=== PATIENT | female | born 1980 | race Caucasian/White ===

== ENCOUNTER → 2017-12-12 12:16 | Outpatient (CLI) | payer OTHER, SELFPAY ==
[2017-12-16 15:12] LABS: HPV Reflexed? NOT INDICATED
== END ==
PROVIDERS: Family Provider Family Medicine; PCP Family Medicine; Visit Provider Family Medicine
DX: Z12.4 Encounter for screening for malignant neoplasm of cervix (principal)
CPT/HCPCS: 88175; G0145

== ENCOUNTER → 2017-12-17 06:31 | Outpatient (CLI) | payer OTHER, SELFPAY ==
--- NOTE | 2017-12-17 10:55 | STRESSREP ---
Stress Test Report Date: 12/17/2017 Procedure: Exercise tolerance test/imaging study Indications: Chest pain Consent: Per the patient Procedure: The patient exercised on a Yuri protocol for 9 minutes completing Stage III achieving a peak heart rate of 173 bpm (95 % predicted maximal heart rate) with a peak blood pressure 144/80 mmHg and a peak MET capacity of 10 METs. The baseline ECG demonstrated sinus rhythm. The peak exercise ECG demonstrated no obvious ECG changes. There were no cardiac dysrhythmias pretest, during exercise, or recovery. The functional capacity was considered good. There was no complaint of chest discomfort during exercise or recovery. The examination was discontinued secondary to dyspnea. Impression: 1. Technically adequate (percent predicted maximal heart rate greater than 85%) exercise tolerance test 2. Peak exercise ECG obvious ECG changes 3. No cardiac dysrhythmias pretest, during exercise, or recovery. 4. Nuclear images pending Myocardial perfusion imaging study: Technique: The patient was injected with 11.5 mCi of technetium 99m Cardiolite and subsequently rest SPECT Cardiolite nuclear imaging was obtained in the horizontal long, vertical long, and short axis views. The patient exercised on a Yuri protocol for 9 minutes completing Stage III achieving a peak heart rate of 173bpm (95 % predicted maximal heart rate) with a peak blood pressure 144/80 mmHg and a peak MET capacity of 10 METs. The patient was injected with 32.2 mCi of technetium 99m Cardiolite and subsequently stress SPECT Cardiolite nuclear imaging was obtained in the horizontal long, vertical long, and short axis views. A gated Cardiolite study at peak stress was obtained. Interpretation: Rest and stress SPECT Cardiolite nuclear imaging status post realignment, normalization, and attenuation correction, demonstrates the appearance of relative uniform tracer uptake and myocardial perfusion appearing within normal limits. There is end systolic thickening and brightening. The gated Cardiolite study demonstrates myocardial thickening and inward wall motion. The reported LVEF is 80 %. Impression: 1. Rest and stress SPECT Cardiolite nuclear imaging demonstrate relative uniform tracer uptake and myocardial perfusion appearing within normal limits. 2. The gated Cardiolite study reports an LVEF of 80 %. This note was generated with [employer] software. It may contain incorrect words, spelling, and punctuation that were not noted in checking the note before signing.
--- NOTE | 2017-12-17 10:59 | STRESSREP_ITS ---
Stress Test Report Date: 12/17/2017 Procedure: Exercise tolerance test/imaging study Indications: Chest pain Consent: Per the patient Procedure: The patient exercised on a Yuri protocol for 9 minutes completing Stage III achieving a peak heart rate of 173 bpm (95 % predicted maximal heart rate) with a peak blood pressure 144/80 mmHg and a peak MET capacity of 10 METs. The baseline ECG demonstrated sinus rhythm. The peak exercise ECG demonstrated no obvious ECG changes. There were no cardiac dysrhythmias pretest, during exercise, or recovery. The functional capacity was considered good. There was no complaint of chest discomfort during exercise or recovery. The examination was discontinued secondary to dyspnea. Impression: 1. Technically adequate (percent predicted maximal heart rate greater than 85% ) exercise tolerance test 2. Peak exercise ECG obvious ECG changes 3. No cardiac dysrhythmias pretest, during exercise, or recovery. 4. Nuclear images pending Myocardial perfusion imaging study: Technique: The patient was injected with 11.5 mCi of technetium 99m Cardiolite and subsequently rest SPECT Cardiolite nuclear imaging was obtained in the horizontal long, vertical long, and short axis views. The patient exercised on a Yuri protocol for 9 minutes completing Stage III achieving a peak heart rate of 173bpm (95 % predicted maximal heart rate) with a peak blood pressure 144/80 mmHg and a peak MET capacity of 10 METs. The patient was injected with 32.2 mCi of technetium 99m Cardiolite and subsequently stress SPECT Cardiolite nuclear imaging was obtained in the horizontal long, vertical long, and short axis views. A gated Cardiolite study at peak stress was obtained. Interpretation: Rest and stress SPECT Cardiolite nuclear imaging status post realignment, normalization, and attenuation correction, demonstrates the appearance of relative uniform tracer uptake and myocardial perfusion appearing within normal limits. There is end systolic thickening and brightening. The gated Cardiolite study demonstrates myocardial thickening and inward wall motion. The reported LVEF is 80 %. Impression: 1. Rest and stress SPECT Cardiolite nuclear imaging demonstrate relative uniform tracer uptake and myocardial perfusion appearing within normal limits. 2. The gated Cardiolite study reports an LVEF of 80 %. This note was generated with [employer] software. It may contain incorrect words, spelling, and punctuation that were not noted in checking the note before signing.
== END ==
LOC: CVS 06:33
PROVIDERS: Family Provider Family Medicine; PCP Family Medicine; Visit Provider Family Medicine
DX: R07.9 Chest pain, unspecified (principal)
CPT/HCPCS: 78452; 93017; A9500; A4216

== ENCOUNTER 2019-07-12 15:39 | Emergency (ER) | payer SELFPAY ==
[2019-07-12 15:40] VITALS: BP 115/67; PULSE 86; RESP 16; TEMP 36.6; O2SAT 99
--- NOTE | 2019-07-12 15:58 | CT_ITS ---
STUDY: CT BRAIN WITHOUT CONTRAST REASON FOR EXAM: Female, 38 years old. Headache, neck pain, weak, nausea, hx migraines. RADIATION DOSAGE (If Supplied By Facility): CTDIvol = ( 60.81 ) mGy, DLP = ( 998.67 ) mGycm TECHNIQUE: Transaxial CT imaging of the brain was performed without administration of intravenous contrast material. Individualized dose optimization techniques were used for this CT. COMPARISON: No relevant priors. FINDINGS: Normal soft tissue structures. Normal calvarium. Normal size ventricles and extra-axial spaces for the patient''s age. Normal white matter tracts of the cerebral hemispheres. Normal basal ganglia and thalami. Normal brainstem. Normal cerebellum. There is no intracranial hemorrhage. There are no findings of an acute ischemic infarction. Normal visualized paranasal sinuses. CT/Brain/Head without Contrast IMPRESSION: Normal unenhanced CT scan of the brain. Electronically Signed: Estuardo Haney MD at 17:03 EST Tel [phone], Service support ,
--- NOTE | 2019-07-12 16:00 | ED.VISSUMM ---
- ER Visit Summary Date of Service: 07/12/19 Chief Complaint: Acute cephalgia with nausea and vomiting History of Present Illness: The patient is a [address] migraine headaches but states she has not had this for years. Said on Friday she had gradual onset of headache radiating to both sides of her back of her neck into her forehead bilaterally. Says it was gradual in onset not thunderclap or sudden. She denies any neurological symptoms. No change in her vision. But she does have photophobia. No trouble moving her arms or legs. No falls or recent head trauma. She is currently not on any medications. Physical Examination: Middle-aged female no acute distress eyes are closed. HEENT exam unremarkable atraumatic. Pupils round reactive light. Intact. Moist with membranes. No facial droop. Normal speech. No signs of trauma to her face or scalp. Neck nontender. No lymphadenopathy. No meningismus. Able to touch chin to chest. Lungs clear to auscultation bilaterally. Heart regular rate and rhythm no murmur. Chest nontender. Abdomen soft nontender. Normal bowel no peritoneal signs. Patient moving all 4 extremities. Neurovascular intact. No abscesses. 5/5 motor strength bilaterally. Dorsi plantarflexion intact. Back exam normal. Skin unremarkable. Neurologically she is awake and alert. No focal motor or sensory deficits. NIH is 0. Speech. No facial droop. Fingertip to nose within normal limits bilaterally. Test Results: CAT scan of the brain without contrast shows no acute intracranial bleed. I reviewed his it was just performed. It will be checked out to the afternoon physician who will follow up with the radiologist reading of the CAT scan. Emergency Department Course and Treatment: Patient treated with IV fluids, Phenergan for nausea, Toradol for pain and Benadryl. She is a history of migraine headaches. Repeat exam at 1645 she is resting comfortably. She said her headache is currently an 8 out of 10. She received medications about 20 to 25 minutes ago. She will be reassessed by the afternoon physician prior to disposition. Treatment Plan: [] Disposition: Discharge Impression: Acute cephalgia History of migraine headaches History of intermittent heroin use This note was generated with [employer] dictation software. It may contain incorrect words, spelling, and punctuation that were not noted in review of the chart prior to signing ED Disposition - Plan for ED Patient: Disposition: Home or Assisted Living Instructions: HEADACHE, Unspecified Referrals: Mitali Zamora MD [Primary Care Provider] - 1-2 Days if not improving Additional Instructions: Plenty of fluids and rest. Tylenol and Motrin for pain. Follow-up if not improving or return to the ER feeling worse.
[2019-07-12] MEDS: proMETHazine 25 MG/ML Syringe 12.5 MG IV (16:17)
[2019-07-12] MEDS: Ketorolac 30 MG/ML Syringe IV (16:17)
[2019-07-12] MEDS: 0.9% Normal Saline 1,000 ML 1000 ML IV (16:17)
[2019-07-12] MEDS: DiphenhydrAMINE 50 MG/ML Syringe 25 MG IV (16:17)
--- NOTE | 2019-07-12 16:19 | ED.DEP ---
ED Disposition - Plan for ED Patient: Disposition: Home or Assisted Living Instructions: HEADACHE, Unspecified Referrals: Mitali Zamora MD [Primary Care Provider] - 1-2 Days if not improving Additional Instructions: Plenty of fluids and rest. Tylenol and Motrin for pain. Follow-up if not improving or return to the ER feeling worse.
--- NOTE | 2019-07-12 17:18 | ED.VISSUMM ---
- ER Visit Summary Date of Service: 07/12/19 Chief Complaint: [Addendum to initial dictation by Dr. Miguel Carlson] History of Present Illness: The patient is a 38 F [presented with headache x2 days. Care of patient was turned over to me awaiting results of CT scan. Patient CT scan was read as normal. I reevaluated the patient and her headache is currently down to a 7 out of 10 in the continuing to improve. I did ask her if she wanted anything further for the pain and she states that she does not at this time. Discharge instructions were written by Dr. Miguel Carlson.] Physical Examination: [HEENT-PERRLA, EOMI. Cranial nerves II through XII grossly intact. TMs clear. Mucous membranes moist. No adenopathy. No nuchal rigidity. Cardiovascular-regular rate and rhythm without murmur or ectopy Lungs-clear to auscultation, chest wall stable without crepitus or subcu emphysema Abdomen-normoactive bowel sounds, soft, nontender, no rebound or rigidity, no peritoneal signs. Neuro sydc-[id number]-ym-nose and heel kendrick testing within normal limits, negative Romberg, negative pronator drift, fundi benign Extremities-intact ?4, normal range of motion, normal pulses, atraumatic] Test Results: [CT scan of the brain without contrast was normal.] Emergency Department Course and Treatment: [] Treatment Plan: [Follow-up with her primary care physician. Advised to return if worsening pain, difficulty with balance or speech, fevers, or conditions worsen anyway.] Disposition: [Discharged home in stable condition] Impression: [Cephalgia] This note was generated with [employer] dictation software. It may contain incorrect words, spelling, and punctuation that were not noted in review of the chart prior to signing ED Disposition - Plan for ED Patient: Disposition: Home or Assisted Living Instructions: HEADACHE, Unspecified Referrals: Mitali Zamora MD [Primary Care Provider] - 1-2 Days if not improving Additional Instructions: Plenty of fluids and rest. Tylenol and Motrin for pain. Follow-up if not improving or return to the ER feeling worse.
== END 2019-07-12 17:31 | disposition home or self-care (01) ==
PROVIDERS: Emergency Provider Emergency Medicine; Family Provider Family Medicine; PCP Family Medicine
DX: R51 Headache (principal); F11.90 Opioid use, unspecified, uncomplicated; Z72.0 Tobacco use
CPT/HCPCS: 70450; 96361; 96374; 96375; 99283; J7030; A4216

== ENCOUNTER 2019-08-27 10:51 | Emergency (ER) | payer SELFPAY ==
[2019-08-27] VITALS (10 sets, daily range): BP systolic 114–133; BP diastolic 80–91; PULSE 16–96; RESP 16–20; TEMP 36.8; O2SAT 97–99; BMI 20.8
--- NOTE | 2019-08-27 10:57 | EKG12_ITS ---
Test Reason : SUICIDE Blood Pressure : / mmHG Vent. Rate : 083 BPM Atrial Rate : 083 BPM P-R Int : 126 ms QRS Dur : 086 ms QT Int : 378 ms P-R-T Axes : 053 032 060 degrees QTc Int : 444 ms Normal sinus rhythm Normal ECG Confirmed by JESSICA PEARL, STEPHIE ([id number]), editor newspaper JACQUELYN RODRIGUEZ ([id number]) on 08/30/2019 10:52:09 AM Referred By: ANNIA Confirmed By:TITA LOPEZ MD
--- NOTE | 2019-08-27 10:58 | ED.VIS.GEN ---
History of Present Illness Chief Complaint: Suicidal Informant: Patient Onset: Days Context: Gradual Onset Timing: Continuous Current Severity: Severe Maximum Severity: Severe Narrative: The patient is a 39-year-old female that presents to the emergency department with suicidal thoughts and suicidal gesture. The patient states that she has been hooked on heroin for about 4 months. She states she got into a relationship with someone who got her started on heroin. She states that she uses almost every day. She has tried to seek help, but states that she has never been able to maintain her sobriety. She states she is at the point where she does not want to live anymore. This morning, she took 3 Vistaril tablets of approximately 25 mg. She also injected heroin about 6 AM. She states that she was hoping it would be enough to kill her. Patient does have a history of prior attempt when she was 18. She states that she overdosed on pills. She does not follow with any counseling services. She voices that she just does not want to live anymore. Prior similar symptoms: No Recent Illness/Hospitalization: No Past Medical History - Allergies and Home Meds Allergies/Adverse Reactions: Allergies iodine Allergy (Verified 07/12/19 15:43) Hives Primary Care Physician: Mitali Zamora MD [Primary Care Provider] - Prior records reviewed: Yes Past Medical History: - - Heroin abuse, depression Surgical History: noncontributory Smoking Status: Current every day smoker Review of Systems General: Denies: Chills, Fever, Sweats Eyes: Denies: Visual changes - bilaterally, Diplopia ENT: Denies: Rhinorrhea, Sore throat Cardiovascular: Denies: Chest pain, Palpitations Respiratory: Denies: Dyspnea, Cough, Dyspnea on exertion Gastrointestinal: Reports: Nausea. Denies: Abdominal pain, Vomiting, Diarrhea, Melena, Hematochezia Genitourinary: Denies: Dysuria, Hematuria, Frequency Musculoskeletal: Denies: Back pain, Extremity Pain Skin: Denies: Rash, Wounds Neurological: Denies: Headache, Weakness, Numbness Psych: Reports: Suicidal thoughts Physical Exam Vital Signs/Narrative: Vital Signs Temp Pulse Resp BP Pulse Ox 08/27/19 10:52 98.2 F 72 16 133/86 H 99 Inital Vital Signs reviewed: Yes General: Well nourished, Well developed, No Acute Distress Head: Normocephalic, Atraumatic Eyes: Perrl, EOMI ENT: Moist mucous membranes, No rhinorrhea Neck: Supple, Nontender Cardiovascular: Regular rate, Regular rhythm, No murmurs Respiratory: No distress, CTA bilaterally, Chest nontender Abdomen: Soft, Nontender, Nondistended, Normal bowel sounds Back: Nontender, Normal Inspection Extremities: Nontender, No edema Skin: Normal color, No rash Neurological: Alert, Oriented x3, Cranial nerves II-XII grossly intact, Normal Strength, Normal Sensation Psychological: Depressed Diagnostic/Tx/Re-eval Abnormal Lab Results 08/27/19 08/27/19 08/27/19 11:20 11:20 11:20 WBC 8.6 RBC 4.74 Hgb 13.9 Hct 40.9 MCV 86.3 MCH 29.3 MCHC 34.0 RDW Std Deviation 39.2 RDW Coeff of Kristine 12.5 Plt Count 242 MPV 10.4 Immature Gran % (Auto) 0.200 Neut % (Auto) 86.0 H Lymph % (Auto) 8.2 L [place] % (Auto) 4.3 Eos % (Auto) 0.7 Baso % (Auto) 0.6 Absolute Neuts (auto) 7.4 Absolute Lymphs (auto) 0.70 L Nucleated RBC % 0 Sodium 136 Potassium 3.5 Chloride 106 Carbon Dioxide 25.0 Anion Gap 5 BUN 9 Creatinine 0.72 Estim Creat Clear Calc 93.30 Est GFR (MDRD) Af Amer 116 Est GFR (MDRD) Non-Af 96 BUN/Creatinine Ratio 12.6 Glucose 86 Calcium 9.6 Total Bilirubin 0.60 AST 25 ALT 48 Alkaline Phosphatase 91 Total Protein 8.1 Albumin 4.0 Globulin 4.1 Albumin/Globulin Ratio 1.0 Serum , Qual Urine Opiates Screen Urine Methadone Screen Ur Barbiturates Screen Ur Phencyclidine Scrn Ur Amphetamines Screen U Methamphetamin-MDMA U Benzodiazepines Scrn Urine Cocaine Screen U Cannabinoids Screen Ur Drug Screen Comment Ethyl Alcohol < 3.0 08/27/19 08/27/19 11:20 12:00 WBC RBC Hgb Hct MCV MCH MCHC RDW Std Deviation RDW Coeff of Kristine Plt Count MPV Immature Gran % (Auto) Neut % (Auto) Lymph % (Auto) [place] % (Auto) Eos % (Auto) Baso % (Auto) Absolute Neuts (auto) Absolute Lymphs (auto) Nucleated RBC % Sodium Potassium Chloride Carbon Dioxide Anion Gap BUN Creatinine Estim Creat Clear Calc Est GFR (MDRD) Af Amer Est GFR (MDRD) Non-Af BUN/Creatinine Ratio Glucose Calcium Total Bilirubin AST ALT Alkaline Phosphatase Total Protein Albumin Globulin Albumin/Globulin Ratio Serum , Qual NEGATIVE Urine Opiates Screen POSITIVE H Urine Methadone Screen NEGATIVE Ur Barbiturates Screen NEGATIVE Ur Phencyclidine Scrn NEGATIVE Ur Amphetamines Screen NEGATIVE U Methamphetamin-MDMA NEGATIVE U Benzodiazepines Scrn NEGATIVE Urine Cocaine Screen NEGATIVE U Cannabinoids Screen NEGATIVE Ur Drug Screen Comment Ethyl Alcohol - Medical Decision Making The patient presents to the emergency department after a suicidal gesture. She did not have a toxic dose of the hydroxyzine. She also admitted to using heroin this morning, but she is awake and alert. She does admit to being currently suicidal. Metabolic screening exam was obtained and is unremarkable. Urine was positive for opiates which the patient did admit to. At this point, she will undergo psychiatric evaluation due to suicidality with persistent plan. Impression 1. Suicidal gesture 2. Heroin abuse ED Disposition - Plan for ED Patient: Referrals: Mitali Zamora MD [Primary Care Provider] -
[2019-08-27] MEDS: Acetaminophen 500 MG Tablet 1000 MG PO (11:10)
[2019-08-27] MEDS: LORazepam 1 MG Tablet PO (11:10)
[2019-08-27 11:34] LABS: Absolute Neutrophil Count 7.4 X10^3/uL (2.0-7.7); Basophil# 0.05 X10^3/uL; Basophil% 0.6 % (0-1); Eosinophil# 0.06 X10^3/uL; Eosinophils% 0.7 % (0-5); Hematocrit 40.9 % (37-47); Hemoglobin 13.9 g/dL (12.0-15.0); Lymphocyte % 8.2 % (19-41); Mean Corpuscular Hgb 29.3 pg (27.0-32.0); Mean Corpuscular Volume 86.3 fL (81-99); Mean Platelet Vol. 10.4 fl (6.2-12.0); Monocyte# 0.37 X10^3/uL; Monocyte% 4.3 % (0-10); NRBC Flagged by Analyzer 0 % (0-5); Neutrophil # 7.37 X10^3/uL (2.7-7.7); Platelet Count 242 K/mm3 (150-450); RBC Distribution Width CV 12.5 % (11.6-14.6); RBC Distribution Width SD 39.2 fl (35.1-43.9); Red Blood Count 4.74 M/mm3 (4.2-5.4); White Blood Count 8.6 K/mm3 (4.4-11.0)
[2019-08-27 11:43] LABS: Internal QC Validated? YES +Cl - CLEAR BKGD; Pregnancy, Serum, hCG Quali. NEGATIVE Negative
[2019-08-27 11:51] LABS: AST(SGOT) 25 U/L (15-37); Alanine Aminotransfer ALT/SGPT 48 U/L (13-56); Alkaline Phosphatase 91 U/L (45-117); Anion Gap 5 (5-15); BUN 9 mg/dL (7-18); BUN/Creat Ratio 12.6 RATIO (10-20); Calcium,Total 9.6 mg/dL (8.5-10.1); Chloride 106 mmol/L (98-107); Creatinine, Serum 0.72 mg/dL (0.55-1.02); EST Glomerular Filtration Rate 96 mL/min (>60); Est Glom Filt Rate - Afr Amer 116 mL/min (>60); Globulin 4.1 g/dL (2.2-4.2); Glucose 86 mg/dL (74-106); Potassium 3.5 mmol/L (3.5-5.1); Protein, Total 8.1 g/dL (6.4-8.2); Sodium Level 136 mmol/L (136-145)
[2019-08-27 12:10] LABS: Alcohol, Blood (Medical)-Serum < 3.0 mg/dL
[2019-08-27 12:30] LABS: Amphetamine Urine VISTA NEGATIVE (<1000 ng/mL); Barbiturate Urine VISTA NEGATIVE (< 200 ng/mL); Benzodiazepine Urine VISTA NEGATIVE (< 200 ng/mL); Cocaine Urine VISTA NEGATIVE (< 300 ng/mL); Ecstacy Urine VISTA NEGATIVE (< 500 ng/mL); Methadone Urine VISTA NEGATIVE (< 300 ng/mL); PCP Urine VISTA NEGATIVE (< 25 ng/mL); THC Urine VISTA NEGATIVE (< 50 ng/mL); Vista UDS pH Range 8
--- NOTE | 2019-08-27 13:06 | CM.ED ---
Social Work Consult: Suicidal Informant: Dr. Russ Patient noted to be self-pay and is confirming to not have insurance. Crisis to come and assess patient. Telephone call to [facility] jackson. Crisis to come and assess. No ETA was given. Shilpa ROMERO, JARED
[2019-08-27] MEDS: Acetaminophen/Butalbital/Caffe 1 Tablet PO (15:27)
[2019-08-27] MEDS: LORazepam 1 MG Tablet 2 MG PO ×2 (16:09→23:10)
[2019-08-27 17:01] LABS: CPK Total, Creatine Kinase 47 U/L (26-192); Thyroid Stim Hormone (TSH) 0.63 uIU/mL (0.358-3.74)
[2019-08-27] MEDS: Ibuprofen 600 MG Tablet PO (17:28)
--- NOTE | 2019-08-27 23:10 | ED.RN ---
Portable computer for room 4 not working. SysAid placed earlier. Adina Cardoso RN verified medication and PT with me.
[2019-08-28] VITALS (7 sets, daily range): BP systolic 104–114; BP diastolic 70–83; PULSE 94–110; RESP 16–23; O2SAT 98–99
--- NOTE | 2019-08-28 03:46 | ED.RN ---
THIS NURSE WENT IN TO THE ROOM TO OBTAIN VITAL SIGNS. DR. ESTRADA SAID THAT WE COULD TAKE HER OFF OF THE CARDIAC MONITORS. PATIENT STATES SHE HAS RESTLESS LEGS AND SHE IS UNABLE TO GET COMFORTABLE TO SLEEP. SHE HAS ASKED PRIOR NURSE IF SHE COULD HAVE MORE ATIVAN AND DR. ESTRADA SAID SHE COULD NOT HAVE ANY BECAUSE SHE HAS HAD 5 MG TOTAL OF ATIVAN. PATIENT STATES THAT SHE USED HEROIN EVERY DAY AND IS PROBABLY GOING THROUGH WITHDRAWAL. SHE ALSO ASKED FOR SOME MUSCLE RUB FOR HER LEGS, BUT WE DO NOT HAVE THAT IN PHARMACY. I OFFERED AN ICE PACK AND WARM CLOTHS AND SHE DENIED THESE ALSO.
[2019-08-28] MEDS: LORazepam 1 MG Tablet 2 MG PO (04:31)
--- NOTE | 2019-08-28 06:00 | ED.RN ---
DR. ESTRADA FINALLY AGREED TO GIVE PATIENT SOME MORE ATIVAN. ATIVAN 2 MG WAS GIVEN AT 431 AM. PATIENT IS STILL WIDE AWAKE. SITTER IS STILL AT THE BEDSIDE.
--- NOTE | 2019-08-28 06:47 | ED.RN ---
DR. ESTRADA WAS MADE AWARE OF PATIENT'S FRUSTRATION OF US NOT DOING ANYTHING TO HELP HER. DR ESTRADA SAID THAT THERE IS NOTHING MORE THAT WE CAN GIVE HER. PATIENT HAS HAD 7 MG OF ATIVAN GIVEN SINCE 1200 YESTERDAY. PATIENT WAS REASSURED BY THIS NURSE THAT [facility] WILL HOPEFULLY CALL THIS AM WITH A BED AFTER DISCHARGING SOME PATIENTS. PATIENT WAS VERY TEARFUL AND SAID I WOULD RATHER THAN GO THROUGH THIS PROCESS. I CONTINUED TO REASSURE AND TOLD HER THAT I WOULD ORDER A BREAKFAST TRAY FOR HER AND HOPEFULLY AFTER EATING SHE WOULD FEEL BETTER.
[2019-08-28] MEDS: Ziprasidone IM 20 MG/ML VIAL 10 MG IM (07:58)
--- NOTE | 2019-08-28 09:30 | NURSING ---
JOSE ARMANDO WALTERS, CALLED BACK. RACHAEL VANCE AT [facility], SAID THE CHART IS STILL BE REVIEWED BY THE PHYSICIAN. SHE WILL LET US KNOW WHEN SHE HEARS ANYTHING
[2019-08-28] MEDS: LORazepam 1 MG Tablet PO (11:25)
== END 2019-08-28 12:17 ==
LOC: ED 11:32
PROVIDERS: Emergency Provider Emergency Medicine; PCP Family Medicine
DX: F32.9 Major depressive disorder, single episode, unspecified (principal); T43.592A Poisoning by other antipsychotics and neuroleptics, intentional self-harm, initial encounter; T40.1X2A Poisoning by heroin, intentional self-harm, initial encounter; R11.0 Nausea; Y92.9 Unspecified place or not applicable; F11.10 Opioid abuse, uncomplicated; F17.200 Nicotine dependence, unspecified, uncomplicated
CPT/HCPCS: 36415; 80053; 80307; 80320; 82550; 84443; 84703; 85025; 93005; 96372; 99284; G0480; J3486